=== PATIENT | male | born 1960 | race Caucasian/White ===

== ENCOUNTER 2017-06-05 07:50 | Emergency (ER) | payer OTHER ==
[~2017-06-05] VITALS: Ht 160 cm; Wt 65.9 kg
[~2017-06-05 07:50] MED LIST: ACET500C5 PO; DICY10CA60 PO; ONDA4TAB35 PO
[2017-06-05 07:53] VITALS: Ht 160 cm; Wt 65.9 kg
[2017-06-05] MEDS ORDERED: ONDANSETRON (ODT) 4 MG TAB ODT STA (08:03)
[2017-06-05 08:19] LABS: URINE BLOOD (Dip) POC Trace-lysed (NEGATIVE)
[2017-06-05 08:29] LABS: BASOPHILS % 0.2 % (0.0-2.0); EOSINOPHILS # 0.1 10^3/ul (0.0-0.5); EOSINOPHILS % 1.3 % (0.0-7.0); HEMATOCRIT 45.5 % (42.0-52.0); HEMOGLOBIN 14.9 g/dl (14.0-18.0); LYMPHOCYTES # 1.1 10^3/ul (0.8-2.9); LYMPHOCYTES % 22.9 % (15.0-51.0); MEAN CORPUSCULAR HEMOGLOBIN 29.3 pg (29.0-33.0); MEAN CORPUSCULAR HGB CONC 32.7 g/dl (32.0-37.0); MEAN CORPUSCULAR VOLUME 89.4 fl (82.0-101.0); MEAN PLATELET VOLUME 9.8 fl (7.4-10.4); MONOCYTE # 0.6 10^3/ul (0.3-0.9); MONOCYTES % 12.5 % (0.0-11.0); NEUTROPHIL # 2.9 10^3/ul (1.6-7.5); NEUTROPHILS % 62.9 % (39.0-77.0); PLATELET COUNT 223 10^3/UL (140-415); RED BLOOD COUNT 5.09 10^6/ul (4.70-6.10); RED CELL DISTRIBUTION WIDTH 13.2 % (11.5-14.5); WHITE BLOOD COUNT 4.6 10^3/ul (4.8-10.8)
[2017-06-05] MEDS ORDERED: HYDROCODONE/APAP (5/325) TAB PO ONE (08:30)
--- NOTE | 2017-06-05 08:34 | ERD ---
ER Documentation Chief Complaint Date/Time DATE: 06/05/17 TIME: 08:30 Chief Complaint hax3 days w/nausea, upper body rash x1 day HPI There is a 57-year-old male who presents the emergency department today complaining of headache, Pain in his eyes, nausea, abdominal pain for the past 3 days and a rash that started on his upper body and arms yesterday. Denies any blurred vision or vision changes. States he has had history of migraines in the past but has not had one for 2 years. Denies any sick contacts. Denies any cough. States he has tried Tylenol and NyQuil. ROS All systems reviewed and are negative except as per history of present illness. Medications Home Meds Active Scripts Diphenhydramine Hcl* (Benadryl*) 25 Mg Cap, 25 MG PO Q6, #30 CAP Prov:ALLEN BECKER PA-C 06/05/17 Naproxen* (Naprosyn*) 500 Mg Tablet, 500 MG PO BID Y for PAIN AND/OR INFLAMMATION, #30 TAB Prov:ALLEN BECKER PA-C 06/05/17 Hydrocodone/Acetaminophen (Monroe 5-325 Tablet) 1 Each Tablet, 1 TAB PO Q6H Y for PAIN, #10 TAB Prov:ALLEN BECKER PA-C 06/05/17 Ondansetron Hcl* (Zofran*) 4 Mg Tablet, 4 MG PO Q6H for NAUSEA AND/OR VOMITING, #30 TAB Prov:ALLEN BECKER PA-C 06/05/17 Ondansetron Hcl* (Zofran* ODT) 4 mg -ODT Tab.disper, 4 MG PO Q8 Y for NAUSEA AND /OR VOMITING, #30 TAB Prov:TIKI MARIN NP 10/28/15 Acetaminophen* (Tylophen*) 500 Mg Capsule, 1 CAP PO Q6H Y for PAIN AND OR ELEVATED TEMP, #20 CAP Prov:TIKI MARIN NP 10/28/15 Dicyclomine Hcl* (Bentyl*) 10 Mg Capsule, 10 MG PO QID for abdominal cramping, # 30 CAP Prov:TIKI MARIN NP 10/28/15 Reported Medications [none] Unknown Strength No Conflict Check 10/28/15 Allergies Allergies: Coded Allergies: No Known Drug Allergies (Verified Allergy, Unknown, 10/27/15) PMhx/Soc History of Surgery: No Anesthesia Reaction: No Hx Neurological Disorder: No Hx Respiratory Disorders: No Hx Psychiatric Problems: No Hx Miscellaneous Medical Probl: No Hx Alcohol Use: No Hx Substance Use: No Hx Tobacco Use: No Smoking Status: Never smoker Physical Exam Vitals Vital Signs Date Time Temp Pulse Resp B/P Pulse Ox O2 Delivery O2 Flow Rate FiO2 06/05/17 07:53 98.6 86 20 119/75 98 Physical Exam Const: NAD Head: Atraumatic Eyes: Bilateral conjunctival erythema. No purulent drainage. PERRLA. EOM intact. ENT: Ears TMs normal. Nose no drainage. Throat no erythema no exudate Neck: Full range of motion..~ No meningismus. Resp: Clear to auscultation bilaterally Cardio: Regular rate and rhythm, no murmurs Abd: Soft, Epigastric tenderness, non distended. Normal bowel sounds No right upper quadrant pain. No tenderness at McBurney's Skin: Diffuse macular rash over bilateral arms chest and back Back: No midline or flank tenderness Ext: No cyanosis, or edema Neur: Awake and alert. Cranial nerves II through XII intact. No gait ataxia. Psych: Normal Mood and Affect Result Diagram: 06/05/17 0820 06/05/17 0820 Results 24 hrs Laboratory Tests Test 06/05/17 08:20 06/05/17 08:26 White Blood Count 4.610^3/ul Red Blood Count 5.0910^6/ul Hemoglobin 14.9g/dl Hematocrit 45.5% Mean Corpuscular Volume 89.4fl Mean Corpuscular Hemoglobin 29.3pg Mean Corpuscular Hemoglobin Concent 32.7g/dl Red Cell Distribution Width 13.2% Platelet Count 98377^3/UL Mean Platelet Volume 9.8fl Neutrophils % 62.9% Lymphocytes % 22.9% Monocytes % 12.5% Eosinophils % 1.3% Basophils % 0.2% Nucleated Red Blood Cells % 0.0/100WBC Neutrophils # 2.910^3/ul Lymphocytes # 1.110^3/ul Monocytes # 0.610^3/ul Eosinophils # 0.110^3/ul Basophils # 0.010^3/ul Nucleated Red Blood Cells # 0.010^3/ul Sodium Level 142mmol/L Potassium Level 4.0mmol/L Chloride Level 106mmol/L Carbon Dioxide Level 27mmol/L Anion Gap 13 Blood Urea Nitrogen 17mg/dl Creatinine 0.88mg/dl Glucose Level 112mg/dl Calcium Level 9.2mg/dl Total Bilirubin 0.5mg/dl Direct Bilirubin 0.00mg/dl Indirect Bilirubin 0.5mg/dl Aspartate Amino Transf (AST/SGOT) 31IU/L Alanine Aminotransferase (ALT/SGPT) 50IU/L Alkaline Phosphatase 68IU/L Total Protein 7.1g/dl Albumin 4.1g/dl Globulin 3.00g/dl Albumin/Globulin Ratio 1.36 Lipase 93U/L Bedside Urine pH (LAB) 6.0 Bedside Urine Protein (LAB) Negative Bedside Urine Glucose (UA) Negative Bedside Urine Ketones (LAB) Negative Bedside Urine Blood Trace-lysed Bedside Urine Nitrite (LAB) Negative Bedside Urine Leukocyte Esterase (L Negative Current Medications Medications (Trade) Dose Ordered Sig/Renata Route PRN Reason Start Time Stop Time Status Last Admin Dose Admin Acetaminophen/ Hydrocodone Bitart (Monroe (5/325)) 1 tab ONCE ONCE PO 06/05/17 08:30 06/05/17 08:31 DC 06/05/17 08:14 Ondansetron HCl (Zofran Odt) 4 mg ONCE STAT ODT 06/05/17 08:03 06/05/17 08:05 DC 06/05/17 08:14 RUN DATE: 06/05/17 [facility] PAGE 1 RUN TIME: [id number] [place] [address] Bon Zavala M.D. [employer] CRISTINA#: [id number] Name: EULALIO DONOHUE Age/Sex: 57/M Attend Dr: IMER BAHENA MD Acct: [id number] MR# : [id number] : 1960 Location: [facility] Admit: 06/05/17 Specimen: [id number] Status: Complete Osbaldo: 06/05/17 Rcvd: 06/05 Source: ADAM Sp Descrip: Procedure Result Microbiology INFLUENZA A & B BY EIA Final INFLU A&B BY EIA INFLUENZA A NEGATIVE (Ref Range Neg) INFLUENZA B NEGATIVE (Ref Range Neg) ................................................................................ ............ Flags: Critical Hi = *H Critical Lo = *L Microbiology Abnormal = * Abnormal Hi = H Abnormal Lo = L Blood Bank Abnormal = * Susceptability Flags: S = Sensitive R = Resistant I = Intermediate END OF REPORT Procedures/MDM There is a 57-year-old male who presents emergency department today with multiple complaints. Given patient's abdominal pain and nausea I did obtain laboratory workup Laboratory workup shows he has no elevated white blood cell count. He is not anemic. Platelets are within normal limits. Lipase is within normal limits UA Is negative for infection. influenza A and B is negative Patient had no right upper quadrant no right lower quadrant pain and I did not feel he required further imaging. I have low suspicion for acute surgical abdomen.Low suspicion for acute appendicitis, acute cholecystitis. Patient also presented with a left-sided headache for the past couple of days. He is afebrile and otherwise well-appearing. He has no focal neurologic deficits and no gait ataxia. I do not feel he requires a head CT scan at this time. Low suspicion for acute hemorrhage, mass, abscess, meningitis. Patient multiple complaints at this time appear to be viral in nature especially given his rash. Low suspicion for SJS, meningitis, TEN and, cellulitis, deep space infection Patient was given Monroe, Zofran here in the emergency department The patient reported feeling significantly better. Patient will be given a prescription for short course of Monroe, Naprosyn, Zofran and Benadryl. At this time the patient is stable for discharge and outpatient management. Patient should follow up with their PCP in the next 1-2 days. They may return to the emergency department sooner for any persistent or worsening of symptoms. Patient understood and agreed with the plan. Departure Diagnosis: Primary Impression: Multiple complaints Condition: ALLEN Bocanegra PA-C Jun 05, 2017 08:34
[2017-06-05 08:46] LABS: ALBUMIN 4.1 g/dl (3.3-4.9); ALBUMIN/GLOBULIN RATIO 1.36; BILIRUBIN,INDIRECT 0.5 mg/dl (0-1.1); BILIRUBIN,TOTAL 0.5 mg/dl (0.2-1.3); CALCIUM 9.2 mg/dl (8.4-10.2); CREATININE 0.88 mg/dl (0.61-1.24); TOTAL PROTEIN 7.1 g/dl (6.1-8.1)
[2017-06-05] MEDS ORDERED: ONDA4TAB8 PO (09:29)
[2017-06-05] MEDS ORDERED: NAPR-260 PO (09:30)
[2017-06-05] MEDS ORDERED: HYDR-906 PO (09:30)
[2017-06-05] MEDS ORDERED: BEN25 PO (09:31)
== END 2017-06-05 09:45 | disposition home or self-care (01) ==
LOC: FTE 07:50
DX: R10.13 Epigastric pain (principal); R11.0 Nausea; R21 Rash and other nonspecific skin eruption
CPT/HCPCS: 80053; 81003; 83690; 85025; 87400; Z7502; Z7610; 99284

== ENCOUNTER 2019-05-17 20:53 | Emergency (ER) | payer OTHER ==
[~2019-05-17] VITALS: Ht 165.1 cm; Wt 68.5 kg
[~2019-05-17 20:53] MED LIST changes: +BEN25 PO; +BUTA1CAP38 PO; +DICY10CA40 PO; -DICY10CA60 PO; +HYDR-4011 PO; +IBUP-1542 PO; +NAPR-985 PO; +ONDA4TAB8 PO; +ONDA8TAB14 PO
[2019-05-17 21:06] VITALS: Ht 165.1 cm; Wt 68.5 kg
[2019-05-17] MEDS ORDERED: ONDANSETRON (ODT) 4 MG TAB ODT STA (23:05)
[2019-05-17] MEDS ORDERED: HYDROCODONE/APAP (5/325) TAB PO ONE (23:30)
[2019-05-18] MEDS ORDERED: KETOROLAC 30 MG INJ IM STA
[2019-05-18 00:49] VITALS: BP 109/57; PULSE 66; RESP 18
== END 2019-05-18 00:49 | disposition home or self-care (01) ==
LOC: FTE 20:53
DX: R51 Headache (principal); R11.2 Nausea with vomiting, unspecified
CPT/HCPCS: 70450; 82962; 96372; 99285; J1885